=== PATIENT | female | born 1995 | race Caucasian/White ===

== ENCOUNTER 2017-01-16 22:08 | Emergency (ER) | payer SELFPAY ==
[~2017-01-16] VITALS: Ht 162.6 cm; Wt 59.0 kg
[2017-01-16 22:27] VITALS: Ht 162.6 cm; Wt 59.0 kg
[2017-01-17] MEDS ORDERED: HYDROCODONE/APAP (5/325) TAB PO ONE (01:30)
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
--- NOTE | 2017-01-17 02:17 | RADRPT ---
PROCEDURE: Right elbow. CLINICAL INDICATION: Pain. TECHNIQUE: Four views including AP, lateral and oblique views of the right elbow were obtained. COMPARISON: None. FINDINGS: There is no fracture, dislocation or bone destruction. The joint spaces are within normal limits. Bone mineralization is within normal limits. There is no radiopaque foreign body or abnormal calcif ication. IMPRESSION: No evidence of fracture. .Agus Quinn MD, MD Date Time Electronically viewed and signed by .Agus Quinn MD, on 01/17/2017 02:17 .T/
[2017-01-17] MEDS ORDERED: HYDR-906 PO (02:25)
[2017-01-17] MEDS ORDERED: IBUP-1542 PO (02:25)
[2017-01-17] MEDS ORDERED: CYCL-319 PO (02:25)
[2017-01-17 02:53] VITALS: BP 171/74; PULSE 58; RESP 16
== END 2017-01-17 02:54 | disposition home or self-care (01) ==
LOC: FTE 22:08
DX: M79.601 Pain in right arm (principal)